=== PATIENT | male | born 1990 | race Hispanic/Latino ===

== ENCOUNTER 2025-06-19 16:42 | Emergency (ER) | payer OTHER ==
[2025-06-19 16:45] VITALS: PULSE 73; RESP 20; TEMP 98.6
[2025-06-19] MEDS: ASPIRIN 325 MG TAB PO ONE (17:40)
[2025-06-19] MEDS: FAMOTIDINE 20 MG/2 ML VIAL IV STA (17:40)
[2025-06-19] MEDS ORDERED: FAMOTIDINE 20 MG/2 ML VIAL IV ONE (17:40)
[2025-06-19] MEDS ORDERED: ASPIRIN 325 MG TAB ONE (17:40)
[2025-06-19 21:42] VITALS: BP 138/91; PULSE 55; RESP 18; TEMP 98.5; O2SAT 99
== END 2025-06-19 21:42 | disposition home or self-care (01) ==
LOC: FSED 17:52
DX: R07.89 Other chest pain (principal); I10 Essential (primary) hypertension
CPT/HCPCS: 71046; 80053; 84484; 85025; 85379; 93005; 99283; J1308